=== PATIENT | female | born 1965 | race African-American/Black ===

== ENCOUNTER 2018-01-09 15:37 | Emergency (ER) | payer MEDICAID ==
[~2018-01-09] VITALS: Ht 162.6 cm; Wt 66.0 kg
[2018-01-09] MEDS ORDERED: KETOROLAC 60MG/2ML VIAL IM ONE (20:30)
[2018-01-09 21:53] VITALS: BP 153/90
== END 2018-01-09 22:00 | disposition home or self-care (01) ==
LOC: ER 15:37
DX: H66.93 Otitis media, unspecified, bilateral (principal); H60.93 Unspecified otitis externa, bilateral
CPT/HCPCS: 96372; 99283; J1885